=== PATIENT | female | born 1985 | race Two or more races ===

== ENCOUNTER 2021-11-27 13:23 | Emergency (ER) | payer BC, MEDICAID ==
[~2021-11-27] VITALS: Ht 175.3 cm; Wt 106.8 kg
[2021-11-27 13:38] VITALS: BP 146/88
[2021-11-27] MEDS ORDERED: PANT-47 PO (14:10)
== END 2021-11-27 15:38 | disposition home or self-care (01) ==
LOC: ER 13:25
DX: J02.9 Acute pharyngitis, unspecified (principal); R07.89 Other chest pain; R22.1 Localized swelling, mass and lump, neck; Z56.0 Unemployment, unspecified; Z88.0 Allergy status to penicillin; Z79.899 Other long term (current) drug therapy
CPT/HCPCS: 99283